=== PATIENT | female | born 1975 | race Hispanic/Latino ===

== ENCOUNTER → 2016-11-16 | Outpatient (REF) | payer OTHER ==
[2016-11-16 11:49] LABS: FOLATE 13.7 NG/ML; VITAMIN B12 LEVEL 492 PG/ML
== END ==
LOC: M LABNEURO 11:14
PROVIDERS: ATTEND Psychiatry & Neurology Neurology
DX: R51 Headache (principal)

== ENCOUNTER → 2017-01-12 | Day surgery (SDC) | payer OTHER ==
[~2017-01-12] VITALS: Ht 160 cm; Wt 64.4 kg
[~2017-01-12] MED LIST: ACETAMINOPHEN 650 MG SUPP As Ordered ONE; ACETAMINOPHEN 650 MG SUPP PR ONE; AMIT10TA PO; BACL10TA2 PO; BUPIVACAINE HCL 0.5% 10 ML VIAL As Ordered ONE; KETOROLAC 60 MG/2 ML VIAL (J1885) As Ordered ONE; LACTATED RINGER'S 1000 ML IV ONE; LIDOCAINE 2% INJ 100 MG/5 ML SDV (FOR ANES.) As Ordered ONE; LR 1,000 ML IV ONE; LR 1,000 ML IV SCH; MAXA10TA15 PO; MIDAZOLAM INJ 2 MG/2 ML VIAL (J2250) As Ordered ONE; MIRA33504 PO; NORCO, ANEXSIA 5/325MG TABLET (HYDROcodone/ACETAMINOPHEN) As Ordered ONE; ONDANSETRON 4MG/2ML VIAL (J2405) As Ordered ONE; ONDANSETRON 4MG/2ML VIAL (J2405) IV PRN; PROPOFOL 200 MG/20 ML VIAL As Ordered ONE; ROCURONIUM BROMIDE 50 MG/5 ML VIAL/SYRINGE As Ordered ONE; VITA100067 PO; dexameTHASONE 4 MG/ML 1ML VIAL (J1100) As Ordered ONE; fentaNYL 100 MCG/2 ML INJECTION (J3010) IV PRN; fentaNYL 250 MCG/5 ML INJECTION (J3010) As Ordered ONE
[2017-01-12 09:03] LABS: MEAN CORPUSCULAR HEMOGLOBIN 29.2 pg (27.0-33.0); MEAN CORPUSCULAR HGB CONC 34.6 g/dl (32.0-36.5); MEAN CORPUSCULAR VOLUME 84.3 fl (80.0-96.0); RED CELL DISTRIBUTION WIDTH 12.6 % (11.5-14.5); WHITE BLOOD COUNT 5.9 K/mm3 (4.0-10.0)
[2017-01-12 09:23] LABS: ANION GAP 6 MEQ/L (8-16); BLOOD UREA NITROGEN 8 MG/DL (7-18); CALCIUM LEVEL 8.7 MG/DL (8.5-10.1); CARBON DIOXIDE LEVEL 25 MEQ/L (21-32); CHLORIDE LEVEL 108 MEQ/L (98-107); CREATININE FOR GFR 0.53 MG/DL (0.55-1.02); GLOMERULAR FILTRATION RATE > 60.0 (>58); GLUCOSE, FASTING 89 MG/DL (70-105); HCG, SERUM QUANTITATIVE < 1.0 MIU/ML; POTASSIUM SERUM 3.9 MEQ/L (3.5-5.1); SODIUM LEVEL 139 MEQ/L (136-145)
[2017-01-12] MEDS: NORCO, ANEXSIA 5/325MG TABLET (HYDROcodone/ACETAMINOPHEN) PO PRN ×2 (12:15→13:15)
[2017-01-12 13:15] VITALS: BP 135/79
--- NOTE | 2017-01-17 06:21 | RO ---
DATE OF PROCEDURE: 01/12/2017 PREOPERATIVE DIAGNOSIS: Satisfied parity POSTOPERATIVE DIAGNOSIS: Satisfied parity OPERATION PERFORMED: Laparoscopy. Bilateral salpingectomy. Hysteroscopy. Dilation and curettage (D and C). Removal of intrauterine contraceptive device (IUCD). SURGEON: Dr. Jeffry Justice APPLIANCE MECHANIC: ANESTHESIA: General plus local anesthetic for intraperitoneal procedures. No need for antibiotics. Sequentials on board. Acetaminophen suppository 1300 mg per rectum. Yang catheter in the bladder draining clear urine. After adequate time-out, prepped and draped in the lithotomy position. Weighted speculum in the vagina. A single-tooth tenaculum on the anterior lip of the cervix. Sounded to depth of 6 cm, anteverted, anteflexed. We could not visualize the string with the IUCD which was supposed to be in place. Reprepping and draping. Small subumbilical incision was made. Veress needle was applied, 3.6 liters of CO2 at a flow rate of 14 to pressure 15. Visiport was used. No evidence of hemorrhage or perforation. Evaluation the right upper quadrant was normal. The right side at the cecal area was normal. The anterior aspect of the bladder was clear. The round ligament on the right side was normal. Posterior cul-de-sac was clear. Interestingly, on the right ovary, there was an active corpus luteum with an active egg visualized. Peritoneal service was posteriorly. There was no evidence of endometriosis. Both tubes were visualized to the fimbriated and both ovaries appeared to be normal. A 5 mm port was placed on each side, left and right, under direct vision. No evidence of perforation or bleeding. We elevated the uterus. We grasped the right tube and using the harmonic scalpel we excised off the right tube from the fimbriated right to the cornua. We did a similar procedure on the left side and both tubes were sent to pathology together and were removed through the 5 mm port. With that done, we evaluated and no evidence of active bleeding. We left 250 mL of normal saline in the abdomen, deflated to 4 mm pressure, removed the two 5 mm ports, removed the mainstem port under direct vision. Deep stitch was placed in the umbilical area, superficial stitches and Marcaine 0.25% to the skin and skin tapes. We then went below and removed the uterine elevator, weighted speculum in the vagina and single-tooth tenaculum on the anterior lip of the cervix. Sounded the uterus up to 6 cm. We were able to dilate to a Kerns 7. Hysteroscope was introduced. Panoramic review. We saw the IUCD in place high up in the uterine fundus. This was removed and sent to pathology under separate cover. Curettage to the cavity, we sent endometrial curettings as well. We used 150 mL of normal saline in and 150 mL out. All instruments removed. The Yang catheter was removed. Uterus replaced in anatomical position. The patient was sent to recovery in good condition.
== END | disposition home or self-care (01) ==
LOC: M SDC 08:31
PROVIDERS: ATTEND Obstetrics & Gynecology
DX: Z30.2 Encounter for sterilization (principal); M54.2 Cervicalgia; F32.9 Major depressive disorder, single episode, unspecified; Z79.899 Other long term (current) drug therapy
CPT/HCPCS: 36415; 58558; 58661; 80048; 84702; 85027; 88300; 88302; 88305; J1100; J1885; J2250; J2405; J3010

== ENCOUNTER → 2019-01-10 | Outpatient (REF) | payer OTHER ==
[~2019-01-10] MED LIST changes: -ACETAMINOPHEN 650 MG SUPP As Ordered ONE; -ACETAMINOPHEN 650 MG SUPP PR ONE; -BUPIVACAINE HCL 0.5% 10 ML VIAL As Ordered ONE; -KETOROLAC 60 MG/2 ML VIAL (J1885) As Ordered ONE; -LACTATED RINGER'S 1000 ML IV ONE; -LIDOCAINE 2% INJ 100 MG/5 ML SDV (FOR ANES.) As Ordered ONE; -LR 1,000 ML IV ONE; -LR 1,000 ML IV SCH; -MIDAZOLAM INJ 2 MG/2 ML VIAL (J2250) As Ordered ONE; -NORCO, ANEXSIA 5/325MG TABLET (HYDROcodone/ACETAMINOPHEN) As Ordered ONE; -ONDANSETRON 4MG/2ML VIAL (J2405) As Ordered ONE; -ONDANSETRON 4MG/2ML VIAL (J2405) IV PRN; -PROPOFOL 200 MG/20 ML VIAL As Ordered ONE; -ROCURONIUM BROMIDE 50 MG/5 ML VIAL/SYRINGE As Ordered ONE; -dexameTHASONE 4 MG/ML 1ML VIAL (J1100) As Ordered ONE; -fentaNYL 100 MCG/2 ML INJECTION (J3010) IV PRN; -fentaNYL 250 MCG/5 ML INJECTION (J3010) As Ordered ONE
== END ==
LOC: M SFHCLERA 18:26
PROVIDERS: ATTEND Nurse Practitioner Family
DX: J02.0 Streptococcal pharyngitis (principal)

== ENCOUNTER → 2020-06-09 | Outpatient (CLI) | payer OTHER | LOC: M LABSMTC 09:20 | PROVIDERS: ATTEND Pediatrics | DX: Z20.828 Contact with and (suspected) exposure to other viral communicable diseases (principal) ==

== ENCOUNTER → 2021-11-04 | Outpatient (CLI) | payer OTHER ==
[~2021-11-04] MED LIST changes: -AMIT10TA PO; +AMIT10TA7 PO
== END ==
LOC: M WHC 09:29
PROVIDERS: ATTEND Family Medicine
DX: Z12.31 Encounter for screening mammogram for malignant neoplasm of breast (principal)

== ENCOUNTER → 2022-04-15 | Outpatient (CLI) | payer OTHER | LOC: M SOG 09:16 | PROVIDERS: ATTEND Orthopaedic Surgery Hand Surgery | DX: G56.03 Carpal tunnel syndrome, bilateral upper limbs (principal) ==

== ENCOUNTER → 2022-09-13 | Outpatient (REF) | payer OTHER ==
[2022-09-14 13:16] LABS: DRVV SCREEN 31.6 SEC
[2022-09-14 13:22] LABS: PTT LUPUS TYPE ANTICOAG SCREEN 0.8 (0-1.2)
== END ==
LOC: M SFHCRHEU 14:29
PROVIDERS: ATTEND Internal Medicine
DX: N96 Recurrent pregnancy loss (principal); M25.50 Pain in unspecified joint

== ENCOUNTER → 2023-03-16 | Outpatient (CLI) | payer OTHER ==
[~2023-03-16] MED LIST changes: -MAXA10TA15 PO; +RIZA10TA66 PO
== END ==
LOC: M WHC 14:41
PROVIDERS: ATTEND Student in an Organized Health Care Education/Training Program
DX: Z12.31 Encounter for screening mammogram for malignant neoplasm of breast (principal)

== ENCOUNTER 2024-06-19 10:00 | Day surgery (SDC) | payer OTHER ==
[~2024-06-19] VITALS: Ht 160 cm; Wt 63.4 kg
[~2024-06-19 10:00] MED LIST changes: +FAMO1TAB11 PO; +FREM225A; +MAGN400C2 PO; +POLY510P14; +RIME75TA; +TELM1TAB35 PO; +VITA100093 PO
[2024-06-19] MEDS ORDERED: propofoL 200 MG/20 ML VIAL As Ordered ONE (11:25)
[2024-06-19] MEDS ORDERED: LIDOCAINE 2% 100MG/5ML SDV (FOR ANES.) As Ordered ONE (11:25)
[2024-06-19] MEDS ORDERED: fentaNYL 100 MCG/2 ML INJECTION As Ordered ONE (11:36)
[2024-06-19 12:06] VITALS: TEMP 97.7
[2024-06-19 12:22] VITALS: BP 119/75; O2SAT 100
== END 2024-06-19 12:45 | disposition home or self-care (01) ==
LOC: M OPP 10:00
PROVIDERS: ATTEND Internal Medicine Gastroenterology
DX: K63.5 Polyp of colon (principal); K58.1 Irritable bowel syndrome with constipation; K64.8 Other hemorrhoids; K21.9 Gastro-esophageal reflux disease without esophagitis; I10 Essential (primary) hypertension; G43.909 Migraine, unspecified, not intractable, without status migrainosus; Z79.899 Other long term (current) drug therapy; Z80.42 Family history of malignant neoplasm of prostate
CPT/HCPCS: 43239; 45385; 88305; J3010

== ENCOUNTER → 2024-09-13 | Outpatient (CLI) | payer OTHER | LOC: M WHC 06:59 | PROVIDERS: ATTEND Physician Assistant Medical | DX: R10.13 Epigastric pain (principal) ==

== ENCOUNTER → 2024-10-11 | Outpatient (CLI) | payer OTHER | LOC: M WHC 07:09 | PROVIDERS: ATTEND Nurse Practitioner Primary Care | DX: Z12.31 Encounter for screening mammogram for malignant neoplasm of breast (principal); R92.333 Mammographic heterogeneous density, bilateral breasts ==